=== PATIENT | male | born 1955 | race Caucasian/White ===

== ENCOUNTER 2019-10-28 20:14 | Emergency (ER) | payer MEDICARE, BC ==
[2019-10-28] MEDS ORDERED: Bacitracin Oint 1 GM U/D Packet TOP ONE (22:27)
--- NOTE | 2019-10-28 22:28 | EDM.PDOC ---
ED HPI GENERAL MEDICAL PROBLEM - General Chief Complaint: Laceration Stated Complaint: LEFT RING FINGER INJURY Time Seen by Provider: 10/28/19 22:27 Source of Information: Reports: Patient History Limitations: Reports: No Limitations - History of Present Illness INITIAL COMMENTS - FREE TEXT/NARRATIVE: pt arrived with a laceration to ring finger. He grabbed something on a pontoon and he caught his ring and he ended up with alot of swelling and a i.25 inch circular laceration Onset: Today, Sudden Duration: Hour(s): Location: Reports: Upper Extremity, Left Associated Symptoms: Reports: No Other Symptoms denies pain Pain Score (Numeric/FACES): 0 - Related Data Allergies Allergy/AdvReac Type Severity Reaction Status Date / Time No Known Allergies Allergy Verified 10/28/19 21:13 Home Meds: Home Meds . [Unable to Verify Home Med List] 10/28/19 [History] Past Medical History HEENT History: Reports: Impaired Vision Cardiovascular History: Reports: Hypertension Psychiatric History: Reports: Depression, Other (See Below) Other Psychiatric History: medicated for depression approximately 20 year ago - Infectious Disease History Infectious Disease History: Reports: Chicken Pox, Measles - Past Surgical History GI Surgical History: Reports: Colonoscopy Social & Family History - Tobacco Use Smoking Status *Q: Never Smoker - Caffeine Use Caffeine Use: Reports: Coffee - Recreational Drug Use Recreational Drug Use: No ED ROS GENERAL - Review of Systems Review Of Systems: See Below Constitutional: Reports: No Symptoms HEENT: Reports: No Symptoms Respiratory: Reports: No Symptoms Cardiovascular: Reports: No Symptoms Endocrine: Reports: No Symptoms GI/Abdominal: Reports: No Symptoms Musculoskeletal: Reports: Other (laceration of the ring finger. ) Skin: Reports: No Symptoms Neurological: Reports: No Symptoms ED EXAM, SKIN/RASH Exam: See Below Text/Narrative:: pt arrived with a laceration of the left ring finger. This was caused by the ring and he has alot of swelling. It is not possible to get the ring off Exam Limited By: No Limitations General Appearance: Alert, Anxious, Moderate Distress Ears: Normal TMs Nose: Normal Inspection Throat/Mouth: Normal Inspection Head: Atraumatic Neck: Normal Inspection Respiratory/Chest: No Respiratory Distress Cardiovascular: Regular Rate, Rhythm Extremities: Other (pt has a .75 inch circular laceration with some degloving aspect to the laceration. ) Course - Vital Signs Last Recorded V/S: Last Vital Signs Temp 36.8 C 10/28/19 21:13 Pulse 74 10/28/19 21:13 Resp 13 10/28/19 21:13 BP 133/68 10/28/19 21:13 Pulse Ox 98 10/28/19 21:13 - Orders/Labs/Meds Meds: Medications Discontinued Medications Generic Name Dose Route Start Last Admin Trade Name Ger PRN Reason Stop Dose Admin Bacitracin 1 dose 10/28/19 22:27 Bacitracin Oint 1 Gm TOP 10/28/19 22:28 ONETIME ONE Lidocaine HCl 5 ml 10/28/19 22:26 Xylocaine-Mpf 1% INJECT 10/28/19 22:27 ONETIME ONE - Re-Assessments/Exams Free Text/Narrative Re-Assessment/Exam: 10/28/19 22:58 The ring was cut off and removed. The wound was cleansed well and infiltrated with lidocaine. The wound was closed with 5-0 chromic and 5-0 prolene. a pressure dressing was applied because of all of the swelling. Departure - Departure Time of Disposition: 23:00 Disposition: Home, Self-Care 01 Condition: Fair Clinical Impression: Laceration, Ring avulsion injury of finger - Discharge Information Referrals: PCP,None [Primary Care Provider] - Forms: ED Department Discharge Care Plan Goals: leave pressure dressing on tomorrow. Redress on Sat with a dry dressing, keep covered, keep dry, sr in 7-8 days. Pt may return to the ER. No further ointments. Sepsis Event Note - Evaluation Sepsis Screening Result: No Definite Risk - Focused Exam Vital Signs: Vital Signs Temp Pulse Resp BP Pulse Ox 10/28/19 21:13 36.8 C 74 13 133/68 98 10/28/19 21:10 36.8 C 74 13 133/68 98 Date Exam was Performed: 10/28/19 Time Exam was Performed: 22:53
== END 2019-10-28 23:18 | disposition home or self-care (01) ==
LOC: JP.ED 20:14
DX: S61.215A Laceration without foreign body of left ring finger without damage to nail, initial encounter (principal); I10 Essential (primary) hypertension; W23.0XXA Caught, crushed, jammed, or pinched between moving objects, initial encounter
CPT/HCPCS: 12001; 99282; J2001